=== PATIENT | male | born 1955 | race African-American/Black ===

== ENCOUNTER 2020-04-26 16:08 | Emergency (ER) | payer SELFPAY ==
[~2020-04-26] VITALS: Ht 182.9 cm; Wt 85.0 kg
[~2020-04-26 16:08] MED LIST: METF850T8 PO
[2020-04-26 16:23] VITALS: BP 145/75
[2020-04-26] MEDS ORDERED: PENI500T PO (16:38)
[2020-04-26] MEDS ORDERED: HYDR-2761 PO (16:38)
--- NOTE | 2020-04-26 16:40 | PHYS DOC ---
Past Medical History Past Medical History: Diabetes-Type II, High Cholesterol, Hypertension, Other Additional Past Medical Histor: BPH, gout, neuropathy Past Surgical History: No Surgical History Smoking Status: Never Smoker Alcohol Use: None Drug Use: None General Adult EDM: Chief Complaint: DENTAL PROBLEM HPI: HPI: Patient is a 64 year old male who presents with 4 days of left lower tooth pain with swelling of the face 2+. Patient has a broken off tooth. Patient states the pain is so great that he cannot sleep. He states he does not have a dentist. Patient denies fever, body aches, headache, dizziness, bleeding from the gumline. Patient rates his nonradiating pain a 10 out of 10. Patient has a history of diabetes, BPH, hypertension, high cholesterol, neuropathy. Review of Systems: Review of Systems: Constitutional: Denies fever or chills. [] Eyes: Denies change in visual acuity. [] HENT: Denies nasal congestion or sore throat. + Dental pain [] Respiratory: Denies cough or shortness of breath. [] Cardiovascular: Denies chest pain or edema. [] GI: Denies abdominal pain, nausea, vomiting, bloody stools or diarrhea. [] : Denies dysuria. [] Musculoskeletal: Denies back pain or joint pain. [] Integument: Denies rash. + Left lower facial swelling [] Neurologic: Denies headache, focal weakness or sensory changes. [] Endocrine: Denies polyuria or polydipsia. [] Lymphatic: Denies swollen glands. [] Psychiatric: Denies depression or anxiety. [] Heart Score: Risk Factors: Risk Factors: DM, Current or recent (<one month) smoker, HTN, HLP, family history of CAD, obesity. Risk Scores: Score 0 - 3: 2.5% MACE over next 6 weeks - Discharge Home Score 4 - 6: 20.3% MACE over next 6 weeks - Admit for Clinical Observation Score 7 - 10: 72.7% MACE over next 6 weeks - Early Invasive Strategies Allergies: Allergies: Allergies Coded Allergies Type Severity Reaction Last Updated Verified No Known Drug Allergies 04/26/20 No Physical Exam: PE: Constitutional: Well developed, well nourished, no acute distress, non-toxic appearance. [] HENT: Normocephalic, atraumatic, bilateral external ears normal, oropharynx moist, no oral exudates, nose normal. Many dental caries with a left lower tooth that is broken. Left lower facial swelling. [] Eyes: PERRLA, EOMI, conjunctiva normal, no discharge. [] Neck: Normal range of motion, no tenderness, supple, no stridor. [] Cardiovascular:Heart rate regular rhythm, no murmur [] Lungs & Thorax: Bilateral breath sounds clear to auscultation [] Abdomen: Bowel sounds normal, soft, no tenderness, no masses, no pulsatile masses. [] Skin: Warm, dry, no erythema, no rash. [] Back: No tenderness, no CVA tenderness. [] Extremities: No tenderness, no cyanosis, no clubbing, ROM intact, no edema. [] Neurologic: Alert and oriented X 3, normal motor function, normal sensory function, no focal deficits noted. [] Psychologic: Affect normal, judgement normal, mood normal. [] Current Patient Data: Vital Signs: Vital Signs Date Time Temp Pulse Resp B/P (MAP) Pulse Ox O2 Delivery O2 Flow Rate FiO2 04/26/20 16:23 98.9 113 20 145/75 (98) Room Air 98.0 98.9 EKG: EKG: [] Radiology/Procedures: Radiology/Procedures: [] Course & Med Decision Making: Course & Med Decision Making Pertinent Labs and Imaging studies reviewed. (See chart for details) See HPI. Patient has many dental caries. Gumline is not swollen and there is no drainage from the area. Afebrile. Speaks in full clear distress. Alert and oriented x4. Ambulatory with a steady gait. Patient will be given penicillin antibiotic. He will also be given dental resources for follow-up care. [] [place] Disclaimer: oGgo Disclaimer: This electronic medical record was generated, in whole or in part, using a voice recognition dictation system. Departure Departure Impression: Primary Impression: Dental abscess Disposition: 01 DC HOME SELF CARE/HOMELESS Condition: STABLE Referrals: NO PCP (PCP) Patient Instructions: Dental Abscess Additional Instructions: Follow-up with a dentist as soon as possible. Take medication as prescribed and with food. Do not drive, drink alcohol or do other drugs on top of the pain medication as it does make you sleepy. Scripts Hydrocodone Bit/Acetaminophen (HYDROCODONE-APAP 5-325 ) 1 Tab Tablet 1 TAB PO PRN Q6HRS PRN for PAIN, #12 TAB 0 Refills Prov: TANESHA HILLMAN APRN 04/26/20 Penicillin V Potassium (PENICILLIN V POTASSIUM) 500 Mg Tablet 1 TAB PO QID, #40 TAB Prov: TANESHA HILLMAN APRN 04/26/20 TANESHA HILLMAN APRN Apr 26, 2020 16:40
== END 2020-04-26 16:52 | disposition home or self-care (01) ==
LOC: ER 16:08
DX: K04.7 Periapical abscess without sinus (principal); E78.00 Pure hypercholesterolemia, unspecified; I10 Essential (primary) hypertension; E11.40 Type 2 diabetes mellitus with diabetic neuropathy, unspecified; N40.0 Benign prostatic hyperplasia without lower urinary tract symptoms; M10.9 Gout, unspecified
CPT/HCPCS: 99283